=== PATIENT | female | born 1975 | race African-American/Black ===

== ENCOUNTER → 2022-05-09 11:14 | Outpatient (BNVA) | payer OTHER, SELFPAY | PROVIDERS: PCP Internal Medicine Medical Oncology; Visit Provider Nurse Practitioner Family | DX: Z13.89 Encounter for screening for other disorder (principal) ==

== ENCOUNTER 2022-10-23 12:01 | Day surgery (SDC) | payer OTHER, SELFPAY ==
[2022-10-19 13:56] VITALS: BMI 22.8
[2022-10-23 12:29] VITALS: BMI 24.2
[2022-10-23 12:42] VITALS: BP 125/75; PULSE 67; RESP 16; TEMP 36.8; O2SAT 97
--- NOTE | 2022-10-23 12:44 | HO.ANESPROP2 ---
[facility] Past Medical History Medical History (Updated 10/23/22 @ 12:28 by Rani Cote RN) Left breast lump Microcytic anemia Miscarriage Family History Family History Father HTN (hypertension) Mother No problems noted. Family history of problems with anesthesia: No Surgical History Surgical History (Updated 10/23/22 @ 12:28 by Rani Cote RN) H/O dilation and curettage No pertinent past surgical history History of Problems with Anesthesia: No Social History Social History Household Members: Spouse and Children Patient Tobacco Use Status: Never used Tobacco Use of substances other than those prescribed or required for medical reasons: No Are you DNR?: No Advance Directives: No Advance Directives Information Provided: Yes Recently lost weight without trying: No Nutrition Risks: No Nutritional Risk Current occupational status: employed 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 [employer] Meds Allergies Allergy/AdvReac Type Severity Reaction Status Date / Time No Known Allergies Allergy Verified 05/09/22 11:35 Home Medications Medication Instructions Recorded Confirmed Last Taken Type multivit-iron 18 mg-folic acid 400 1 tab PO DAILY 05/05/22 10/19/22 Unknown History mcg-calcium 450 mg-minerals tablet (One Daily Women's) Exam Exam Date and Time: October 23, 2022 1244 Height,Weight and Vital Signs: Height 5 ft 4 in Weight 64.07 kg Pertinent Lab Results Pertinent Lab Results: Laboratory Tests 10/23/22 12:17 Urine Test NEGATIVE Airway Mallampati Class: I TM Dist: >3cm Neck ROM: Full Assessment and Plan Assessment Anesthesia Assessment: Anesthesia Plan Discussed and Chart Reviewed Final Anesthetic Review Family History of Problems with Anesthesia: No History of Problems with Anesthesia: No NPO: Yes ASA Class: II Final Preanesthetic Review: No Changes in Pt Med Stat, Meds/Allgs Chart Reviewed, Consent Obtained/Reviewed and Anes Risks/Benef Reviewed Patient Risk: Low Procedure Risk: Low Anesthetic Plan Anesthetic Plan: MAC: Disposition: Standard PACU
--- NOTE | 2022-10-23 14:10 | MHC.SHP ---
Pre-Procedural Eval Section A Date of Service: 10/23/22 The patient is an INPATIENT: No Section B Chief Complaint: Screening Relevant Family History (Specify if Yes): No Relevant Social History: None Present Medications: see Short Stay Collaborative assessment Medical History: No relevant PMH History of Previous Operations: Relevant previous surgery/procedure and date(s) (History of D and C) Allergies: Allergies Allergy/AdvReac Type Severity Reaction Status Date / Time No Known Allergies Allergy Verified 05/09/22 11:35 Review of Systems Sugical H&P ROS: Negative: Constitution, Cardiovascular, Respiratory and Gastrointestinal Exam Surgical H&P Exam: Normal: Heart, Normal: Lungs, Normal: Extremities and Normal: Abdomen Plan Diagnosis/Plan: Unchanged I have reviewed the history and physical and performed a pertinent physical examination on my patient. No changes have occurred unless specified. Time Spent With Patient Time: Total time managing care of this patient today ____ minutes.
--- NOTE | 2022-10-23 14:16 | W.PM.OPN ---
Operative Note Operative Note Date of Service: 10/23/22 Narrative: COLONOSCOPY TILL CECUM WITH BIOPSIES AND SNARE POLYPECTOMY Pre-op diagnosis: Colon cancer screening (1st colonoscopy) Post-op diagnosis:? Colon polyps, hemorrhoids Endoscopist:? Matthew Bravo MD Anesthesia:?MAC Consent: Indications for the procedure and potential complications of bleeding, perforation, reaction to medications and missed diagnosis were discussed with the patient and informed consent was obtained. Instrument: Olympus PCF H 190 L variable stiffness pediatric colonoscope Monitoring: Vital signs and clinical assessment, intermittent blood pressure monitoring, continuous EKG monitoring, Pulse oximetry and Carbon Dioxide monitoring were done throughout the procedure. Please see anesthesia flowsheet. Colon withdrawl time was 19 minutes. Procedure: The patient was placed in the left lateral decubitis position and pre-procedure medications were administered. After a digital rectal examination of the ano-rectum, the video colonoscope was inserted into the rectum and advanced through the colon to the cecum. The colonoscope was slowly withdrawn in a retrograde panoramic fashion and the colon mucosa was carefully examined including a retroflexed view of the rectum. Findings and interventions are described below. Procedure Difficulty: Colon was long and tortuous and there was spasm and recurrent loop formation. LLQ pressure was applied to intubate the transverse colon Findings: Terminal Ileum: Not evaluated Cecum: Normal Ascending Colon: A 7-8 mm sessile polyp in the mid ascending colon - removed with a cold snare Transverse Colon: Two 4-8 mm diminutive appearing polyps - removed with a cold biopsy Descending Colon: Normal Sigmoid Colon: Normal Rectum: Normal Ano-rectum: Small internal hemorrhoids Colon preparation: Excellent Impression and Post Procedure Diagnosis: Colonoscopy Findings: Three small polyps removed Small hemorrhoids on retroflexed exam. Plan: I will send a letter with pathology results Repeat Colonoscopy interval based on path results - in 3-5 years if polyps are adenomatous and 10 years if polyps are hyperplastic. Above findings were reviewed with the patient and colon polyps and diverticulosis handouts were given in the discharge area
[2022-10-23 14:53] VITALS: BP 99/57; PULSE 73; RESP 16; TEMP 36.2; O2SAT 98
[2022-10-23 15:08] VITALS: BP 106/62; PULSE 72; RESP 14; O2SAT 100
[2022-10-23 15:20] VITALS: BP 117/76; PULSE 75; RESP 16; TEMP 36.2; O2SAT 100
== END 2022-10-23 15:30 | disposition home or self-care (01) ==
PROVIDERS: PCP Internal Medicine Medical Oncology; Visit Provider Internal Medicine Gastroenterology
PROC: 0DJD8ZZ Inspection of Lower Intestinal Tract, Via Natural or Artificial Opening Endoscopic (ICD-10-PCS; CPT 45378; principal; 2022-10-23 13:40)
DX: Z12.11 Encounter for screening for malignant neoplasm of colon (principal); K63.5 Polyp of colon; K64.8 Other hemorrhoids; D50.9 Iron deficiency anemia, unspecified; Z79.899 Other long term (current) drug therapy
CPT/HCPCS: 45385; 45380; 81025; 88305

== ENCOUNTER → 2022-10-23 12:01 | Outpatient (BNV) | payer OTHER, SELFPAY | PROVIDERS: PCP Internal Medicine Medical Oncology; Visit Provider Internal Medicine Gastroenterology | DX: Z12.11 Encounter for screening for malignant neoplasm of colon (principal); D12.2 Benign neoplasm of ascending colon; D12.3 Benign neoplasm of transverse colon; K64.8 Other hemorrhoids | CPT/HCPCS: 45380; 45385 ==

== ENCOUNTER 2022-11-07 14:11 | Outpatient (AMB) | payer OTHER, SELFPAY ==
[2022-11-07 14:22] VITALS: BP 133/71; PULSE 64; BMI 26.0
--- NOTE | 2022-11-07 14:22 | A.OFFVIS_ITS ---
Intake Vital Signs 11/07/22 14:22 Height 5 ft 4 in Weight 151 lb 3.794 oz BMI 26.0 BP 133/71 Blood Pressure Location Lt brachial Position Sitting Pulse 64 Intake Visit Reasons: results Intake Note: Brittanie presents in office as a est.patient for a f/u for results. 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 Denies any issues with anesthesia in the past.? Denies any history of sleep apnea.? No history infectious diseases in the past or present.? Not on any anticoagulation therapy.? No family or personal history of colon cancer or polyps.? Patient denies melena, hematochezia, unintentional weight loss or ribbon like stools.? Discussed at length the pre-procedure,? prep, diet & medications as well as what to expect prior, during and after the procedure.?? Stressed the importance of good bowel prep. ?Recommended the use of Vaseline or Calmoseptine OTC & baby wipes with bowel movements to promote comfort.? ?Patient verbalizes understanding and agrees to plan of care.? She was given the opportunity to ask questions and all questions answered.? We will see her after the procedure.? Plan Medications New bisacodyl (Dulcolax (bisacodyl)) take 2 tabs at noon the day before your colonoscopy 10 mg (2 x 5 mg) PO ONCE 1 day 2 tabs 0RF Z12.11 polyethylene glycol 3350 (Miralax) As directed by gastroenterology department at [facility] 238 grams PO ONCE 238 grams 0RF Z12.11 COLONOSCOPY SCREENING Findings: Terminal Ileum: Not evaluated Cecum:? Normal Ascending Colon:? A 7-8 mm sessile polyp in the mid ascending colon - removed with a cold snare Transverse Colon:? Two 4-8 mm diminutive appearing polyps - removed with a cold biopsy Descending Colon:? Normal Sigmoid Colon:? Normal Rectum:? Normal Ano-rectum:? Small internal hemorrhoids Colon preparation: Excellent ? Impression and Post Procedure Diagnosis: Colonoscopy Findings: Three small polyps removed Small hemorrhoids on retroflexed exam. Plan: Repeat Colonoscopy interval based on path results - in 3-5 years if polyps are adenomatous and 10 years if polyps are hyperplastic. PATHOLOGY RESULTS Diagnosis A.? Colon, ascending, polyp:? Colonic mucosa with lymphoid aggregates and no specific change; negative for adenomatous dysplasia.? B.? Colon, transverse, 2 polyps:? Colonic mucosa with prominent lymphoid aggregates and no specific change; negative for adenomatous dysplasia. TODAY'S VISIT: Patient is here today for follow-up and to discuss colonoscopy results. Patient denies any ill effects from the prep, anesthesia or procedure itself. Patient d enies any GI concerning symptoms. Reports to be feeling well. Three benign polyps found. Patient will need to repeat colonoscopy in 10 years, sooner if clinically necessary. PFSH Medical History Left breast lump Microcytic anemia Miscarriage Surgical History H/O dilation and curettage No pertinent past surgical history Family History Father HTN (hypertension) Mother No problems noted. 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 [employer] Review of Systems Const Denies weight gain and Denies weight loss ENT Reports no additional complaints, Denies dysphagia and Denies odynophagia Card Reports no additional complaints Resp Reports no additional complaints GI Denies abdominal pain, Denies belching, Denies melena, Denies bloating, Denies change in bowel habits, Denies dysphagia, Denies excessive flatus, Denies dyspepsia, Denies heartburn, Denies diarrhea, Denies loose stools, Denies nausea, Denies odynophagia and Denies vomiting Musc Reports no additional complaints Neuro Reports no additional complaints Psych Reports no additional complaints Endo Reports no additional complaints Physical Exam Vital Signs: Last Vital Signs Pulse 64 07/25/23 14:22 BP 133/71 11/07/22 14:22 BMI result Body Mass Index 26.0 Const General: healthy appearing, no acute distress and well developed Nutritional Appearance: well nourished Orientation/consciousness: patient oriented x3 HEENT Head: Yes normal to inspection, Yes normocephalic and Yes atraumatic Face and sinus: Yes normal facial exam Mouth: Normal oral and palatal mucosa present Throat: Yes posterior oropharynx normal, Yes tonsils normal and Yes uvula midline Eyes General: appearance normal, both eyes and all related structures Neck Neck: Yes normal visual inspection, Yes full ROM and Yes trachea midline Thyroid: Thyroid normal Resp Effort & Inspection: normal respiratory effort, able to speak in complete sentences, no tracheal deviation and symmetric chest movement Auscultation: clear to auscultation bilaterally Cardio Rate: regular rate Heart sounds: S1 normal heart sound present and S2 normal heart sound present GI Inspection: Yes normal to inspection and No distended Palpation (GI): Soft to palpation, not firm, nontender and No hepatosplenomegaly present Auscultation: normal bowel sounds General: Yes no CVA tenderness Back/Spine/Pelvis Back: no CVA tenderness Skin General skin exam: elasticity normal, turgor normal and dry skin Neuro General: patient oriented x3 Psych Appearance: grossly normal Mental Status: mental status grossly normal Speech and movement: Normal speech and movement present Assessment & Plan Assessment & Plan (1) Status post colonoscopy: Code(s): Z98.890 - Other specified postprocedural states Plan: Three benign polyps. No issues with anesthesia, prepped or procedure itself. Patient had excellent prep. Colonoscopy recommendation in 10 years, sooner if clinically necessary. Patient will follow-up with our office on as needed ba sis. Asking for script for something to help her empty her bowels completely. Patient states that she does not have any trouble moving her bowels. Patient was given the opportunity to ask questions and all questions answered. Thank you for allowing me to participate in her care Medications: New polyethylene glycol 3350 (Miralax) 17 grams PO DAILY 510 grams 2RF Coding Level of Care Code Est Pt Level 3 (28514) Diagnoses Status post colonoscopy Z98.890 Time Spent (min) 30 Comment 20 minutes spent with patient and additional 10 minutes spent reviewing her records
== END 2022-11-07 14:49 | disposition home or self-care (01) ==
PROVIDERS: PCP Internal Medicine Medical Oncology; Visit Provider Nurse Practitioner Family
DX: Z98.890 Other specified postprocedural states (principal)
CPT/HCPCS: 99213

== ENCOUNTER → 2022-11-07 14:11 | Outpatient (BNVA) | payer OTHER, SELFPAY | PROVIDERS: PCP Internal Medicine Medical Oncology; Visit Provider Nurse Practitioner Family ==

== ENCOUNTER 2024-10-27 11:01 | Outpatient (REF) | payer SELFPAY ==
--- OUTSIDE RECORDS SUMMARY | 2024-06-18 10:05 | XMS_ITS ---
Author Organization Shaka Chairez III, MD Address [address] [place] [address] [place] [address] Care Team Providers Care Terra Cotta Mold Maker Name Role Phone Shaka Chairez Primary Care Provider REASON FOR VISIT Out of work Note request Social History Sex Assigned At : Social History Observation Description Sex Assigned At Female Encounters Encounter Location Date Provider Diagnosis Shaka Chairez III, MD [address] [place] [address] [place] [address] 06/18/2024 Shaka Chairez Plan Of Treatment Next Appt Details Provider Name:Shaka Chairez, 12/31/2024 11:00:00 AM, [address] [place] [address] [place], [address], Progress Notes * Brittanie ENGLISH NDOB: 6 (49 yo F)Acc No.[id number]:06/18/2024 Patient: Brittanie YUEN :1975 A ge:49 Y S ex:Female Address:[place], [address] * true * Date: Generated for Printi ng/Faxing/eTransmitting on: 10/27/2024 12:05 PM EDT
[2024-10-27 13:18] LABS: Appearance Urine Clear; Glucose Urine UA Negative (Negative); PH 5.5 (5.0-9.0); Specific Gravity - Urine 1.020 (1.005-1.025)
== END 2024-10-27 11:02 | disposition home or self-care (01) ==
LOC: HO.10HDLNP 11:01
PROVIDERS: Visit Provider Internal Medicine Medical Oncology
DX: R39.9 Unspecified symptoms and signs involving the genitourinary system (principal)
CPT/HCPCS: 81003; 87086

== ENCOUNTER → 2025-04-08 11:36 | Outpatient (REF) | payer BC, SELFPAY ==
--- OUTSIDE RECORDS SUMMARY | 2024-06-18 09:05 | XMS_ITS ---
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 Shaka Chairez III Primary Care Provider [phone] REASON FOR VISIT Out of work Note request Social History Sex Assigned At : Social History Observation Description Sex Assigned At Female Encounters Encounter Location Date Provider Diagnosis Shaka Chairez III, MD [address] [place] [address] [place] [address] 06/18/2024 Shaka Chairez Plan Of Treatment Next Appt Details Provider Name:Shaka Chairez , 05/18/2025 10:00:00 AM, [address] [place] [address] [place], [address], Provider Name:Shaka Chairez , 01/01/2026 02:00:00 PM, [address] [place] [address] [place], [address], Progress Notes * REDDMUNACharanjitBrittanie NDOB: 6 (49 yo F)Acc No.[id number]:06/18/2024 Patient: Brittanie YUEN Jayson :1975 A ge:49 Y S ex:Female Address:[address], [place] [facility] [place], [address] * true * Date: Generated for Sandy rdz/Lily/Duyen on: 06/09/2024 11:40 AM EST
--- OUTSIDE RECORDS SUMMARY | 2024-07-08 11:00 | XMS_ITS ---
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 Shaka Chairez III Primary Care Provider Allergies Allergen (clinical drug ingredient) Drug/Non Drug Allergy documented on EMR Reaction Allergy Type Onset Date Status No Known Drug Allergy Unknown Drug Allergy Active REASON FOR VISIT Annual Exam Medications Medication SIG (Take, Route, Fr equency, Duration) Notes Start Date End Date Status Womens One Daily 18 one a day Orally Active Social History Tobacco Use: Social History Observation Description Date Details (start date - stop date) Never Smoker NA - NA Sex Assigned At : Social History Observation Description Sex Assigned At Female Tobacco Use/Smoking Question Answer Notes Patient is a nonsmoker Additional Findings: Tobacco Non-User Aggressive non-smoker Encounters Encounter Location Date Provider Diagnosis Shaka Chairez III, MD [address] [place] [address] [place] [address] 07/08/2024 Shaka Chairez Leukopenia, unspecified type D72.819 Assessments Encounter Date Diagnosis (ICD Code) Assessment Notes Treatment Notes Treatment Clinical Notes 07/08/2024 Leukopenia, unspecified type (ICD-10 - D72.819) She has had no infections until now. Comprehensive blood work has been ordered prior to her next visit. Plan Of Treatment Medication Medication Name Sig Start Date Stop Date Notes Womens One Daily 18 one a day Orally Next Appt Details Provider Name:Shaka Chairez , 05/18/2025 10:00:00 AM, [address] [facility] [place], [place], [address], Provider Name:Shaka Chairez , 01/01/2026 02:00:00 PM, [address] [facility] [place], [place], [address], Progress Notes * Brittanie GAVIRIA NDOB: [birth year] (50 yo F)Acc No.[id number]:07/08/2024 Progress Notes Patient: Brittanie YUEN N Provider: Elvis Chairez MD :1975 A ge:49 Y S ex:Female Date:07/08/2024 Address:[address] [place] [id number] Subjective: * Chief Complaints: * 1 . Annual Exam. * HPI: C OVID-19 Screening: Questions H ave you had any new onset fever, chills, cough, congestion, sore throat, shortness of breath, muscle aches? N o * ROS: G eneral/Constitutional: pain o nly normal aches and pains. C hills d enies.?Fatigue a dmits. F ever d enies. E NT: Decreased hearing d enies. R espiratory: Cough d enies. C ardiovascular: Chest pain with exertion d enies. D yspnea on exertion?denies. S hortness of breath d enies. G astrointestinal: Constipation d enies. D ecreased appetite d enies.?Diarrhea d enies. H eartburn d enies. N ausea d enies. R ectal bleeding?denies. V omiting d enies. H ematology: bruising d enies. p etechiae d enies. S wollen glands n one have been noted. G enitourinary: Frequent urination d enies. M usculoskeletal: Muscle aches d enies. P ainful joints d enies. S ciatica d enies. W eakness d enies. S kin: Itching d enies. R kimo d enies. S kin lesion(s)?denies. N eurologic: Difficulty speaking d enies. D izziness d enies.?Headache d enies. L ow back pain d enies. P sychiatric: Depressed mood d enies. * Medical History: M icrocytic anemia. 2013, Slightly overweight. * Surgical History: D enies Past Surgical History. * Hospitalization/Major Diagno stic Procedure: D enies Past Hospitalization. * Family History: F ather: alive 66 yrs, hypertension. M other: alive 70 yrs, ulcers. 2 brother(s) , 5 sister(s) - healthy. 2 daughter(s) - healthy. . Her siblings are all alive and well without anemias. Her children are healthy. She is not aware of any family history of mental illness or addiction or substance abuse. * Social History: T obacco Use: T obacco Use/Smoking P atspencer is a n onsmoker A dditional Findings: Tobacco Non-User A ggressive non-smoker S he has been to [place] for several years. She was born in [facility]. She has 2 healthy children, both daughters. 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 She has no exposures. She has never had a transfusion. She has not a Congregational. * Medications: T aking Womens One Daily 18 mg one a day Orally , Medication List reviewed and reconciled with the patient * Allergies: N o Known Drug Allergy. Objective: * Vitals: * Examination: G eneral Examination: GENERAL APPEARANCE: p leasant, well nourished, well developed, in no acute distress, calm and relaxed. HEAD: a traumatic, normocephalic. EYES: e travis, perrla, anicteric, conjugate. EARS: n ormal. NOSE: s eptum intact. ORAL CAVITY: n ormal, unremarkable. NECK/THYROID: n o jugular venous distention, no carotid bruit, thyroid normal. LYMPH NODES: n o enlarged lymph nodes,spleen normal. SKIN: n o suspicious lesions, anicteric. HEART: n o clicks, gallops, murmurs, or rubs, regular rhythm, S1, S2 normal, no s3, or vascular bruits. LUNGS: c lear to auscultation . BREASTS: no masses palpable bilaterally. ABDOMEN: b owel sounds normal, no ascites, no organomegaly, no mass. RECTAL EXAM: n ot examined. MUSCULOSKELETAL: e xtremities unremarkable, no clubbing, cyanosis or edema. PERIPHERAL PULSES: n ormal. NEUROLOGIC: a lert and oriented, cranial nerves 2-12 grossly intact, deep tendon reflexes 2+ symmetrical, motor strength normal upper and lower extremities, sensory exam intact. PSYCH: a lert, oriented. Assessment: * Assessment: 1. L eukopenia, unspecified type - D72.819 N otes :She has had no infections until now. Comprehensive blood work has been ordered prior to her next visit. Plan: * Treatment: * Images: * The named appointment provid er may or may not be the originator of this progress note, and it is not deemed complete until electronically signed by the appointment provider. Sign off status: Pending * Provider: Elvis Chairez MD Date: 0 07/08/2024 Generated for Sandy rdz/Lily/Justusransmitting on: 06/09/2024 11:40 AM EST History and Physical Notes * HPI (History of Present Illness) Category Sub-Category Detail Notes COVID-19 Screening Questions Have you had any new onset fever, chills, cough, congestion, sore throat, shortness of breath, muscle aches?: No Examination Category Sub-Category Detail Notes General Examination GENERAL APPEARANCE: pleasant , well nourished, well developed, in no acute distress, calm and relaxed HEAD: atraumatic, normocep halic EYES: eomi, perrla, anicte susanna, conjugate EARS: normal NOSE: septum intact NECK/THYROID: no jugular venous di stention, no carotid bruit, thyroid normal HEART: no clicks, gallops, murmurs, or rubs, regular rhythm, S1, S2 normal, no s3, or vascular bruits LUNGS: clear to auscultatio n ABDOMEN: bowel sounds normal, no ascites, no organomegaly, no mass NEUROLOGIC: alert and oriented, cranial nerves 2-12 grossly intact, deep tendon reflexes 2+ symmetrical, motor strength normal upper and lower extremities, sensory exam intact SKIN: no suspicious lesion s, anicteric PERIPHERAL PULSES: normal BREASTS: no masses palpable b ilaterally MUSCULOSKELETAL: extremities unremark able, no clubbing, cyanosis or edema LYMPH NODES: no enlarged lymph no em,spleen normal RECTAL EXAM: not examined PSYCH: alert, oriented ORAL CAVITY: normal, unremarkable
--- OUTSIDE RECORDS SUMMARY | 2024-10-27 05:00 | XMS_ITS ---
Author Organization Shaka Chairez III, MD Address [address] [place] [address] Care Team Providers Care Classroom Coordinator Name Role Phone Dr. Shaka Chairez III Primary Care Provider Allergies Allergen (clinical drug ingredient) Drug/Non Drug Allergy documented on EMR Reaction Allergy Type Onset Date Status No Known Drug Allergy Unknown Drug Allergy Active Results Component Value Reference Range Notes Urine Culture Reviewed date:11/07/2024 01:03:44 PM Interpretation: Performing Lab:[facility], [address] [place] [id number] Notes/Report: Urine Culture Report Result Urine Culture 10,000 to 50,000 cfu/ml Urine Culture Mixed bacterial paige a characteristic of Urine Culture urogenital contamination. REASON FOR VISIT recheck left ankle sprain, Obesity Medications Medication SIG (Take, Route, Fr equency, [...] nonsmoker Additional Findings: Tobacco Non-User Aggressive non-smoker Problems Problem Type SNOMED Code ICD Code Onset Dates Problem Status W/U Status Risk Notes Problem [id number] Sprain of unspecified ligament of left ankle, initial encounter (S93.402A) Active confirmed She is recovering well. No fracture was noted on x-rays. He will refrain for several weeks from his vigorous physical activity and then resume normal life. Problem [id number] Other obesity due to excess calories (E66.09) Active confirmed She has gained weight and her body mass index is now 30. We discussed diet and nutrition at length. We made a strategy to lose weight at a rate of 1 pound per week. Vital Signs Temperature 97.3 degrees Fahrenheit 10/28/19 25 Blood pressure systolic 138 mm Hg 10/28/19 25 Blood pressure diastolic 84 mm Hg 025 Heart Rate 81 /min 10/27/2024 Height 64 in 10/27/2024 Weight 176 lbs 10/27/2024 BMI 30.21 kg/m2 10/27/2024 Encounters Encounter Location Date Provider Diagnosis Shaka Chairez III, MD [address] [place] [address] [place] [address] 10/27/2024 Shaka Chairez UTI symptoms R39.9 ; Sprain of unspecified ligament of left ankle, initial encounter S93.402A ; Leukopenia, unspecified type D72.819 ; Microcytic anemia D50.9 and Other obesity due to excess calories E66.09 Assessments Encounter Date Diagnosis (ICD Code) Assessment Notes Treatment Notes Treatment Clinical Notes 10/27/2024 UTI symptoms (ICD-10 - R39.9) A urine culture was ordered and is currently pending. 10/27/2024 Sprain of unspecified ligament of left ankle, initial encounter (ICD-10 - S93.402A) She is recovering well. No fracture was noted on x-rays. He will refrain for several weeks from his vigorous physical activity and then resume normal life. 10/27/2024 Leukopenia, unspecified type (ICD-10 - D72.819) She has had no infections until now. Comprehensive blood work has been ordered prior to her next visit. 10/27/2024 Microcytic anemia (ICD-10 - D50.9) She is going to have comprehensive blood work in the next week. She will return to the office in 1 year after more cooperative blood work. 10/27/2024 Other obesity due to excess calories (ICD-10 - E66.09) She has gained weight and her body mass index is now 30. We discussed diet and nutrition at length. We made a strategy to lose weight at a rate of 1 pound per week. Plan Of Treatment Medication Medication Name Sig Start Date Stop Date Notes Womens One Daily 18 one a day Orally Pending Test Test Name Order Date URINALYSIS (UA) 10/27/2024 Next Appt Details Follow Up: As Scheduled, Analilia son: Annual Exam Provider Name:Shaka Chairez , 05/18/2025 10:00:00 AM, [address] [place] [address] [address], [place], [address], Provider Name:Shaka Chairez , 01/01/2026 02:00:00 PM, [address] [place] [address] [address], [place], [phone], Progress Notes * Brittanie GAVIRIA NDOB: [birth year] (49 yo F)Acc No.[id number]:10/27/2024 Progress Notes Patient: Brittanie YUEN Provider: Elvis Chairez MD :1975 A ge:49 Y S ex:Female Date:10/27/2024 Address:[address] [place], [place] [id number] Subjective: * Chief Complaints: * R echeck left ankle sprainObesity * HPI: C OVID-19 Screening: S he sprained her ankle 2 weeks ago and went to the [facility] emergency room.? X -rays showed no fracture. She was given an ankle brace. The pain and swelling have completely resolved and she is walking without difficulty at this time. Since her last visit she has gained 20 pounds. She says her urine is not quite right and she is concerned she may be getting a urinary tract infection. Na stevens have ordered a urine culture and urinalysis. She can call me in 48 hours if I don't call her first. She continues to have periods although they're becoming irregular at the age of 49. Aside from the weight cane she seems healthy and well. Questions H ave you had any new [...] Muscle aches d enies. P ainful joints H er left ankle is almost painless at this time.. S ciatica d enies. W eakness d enies. ? S kin: Itching d enies. R kimo d enies. S kin lesion(s)?denies. N eurologic: Difficulty speaking d enies. D izziness d enies.?Headache d enies. L ow back pain d enies. P sychiatric: Depressed mood d enies. * Medical History: * Surgical History: D enies Past Surgical History * Hospitalization/Major Diagno stic Procedure: D enies Past Hospitalization * Family History: F ather: alive 66 [...] T obacco Use: T obacco Use/Smoking P atient is a n onsmoker A dditional Findings: Tobacco Non-User A ggressive non-smoker S he has been to [place] for several years. She was born in [facility]. She has 2 healthy children, both daughters. 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 She has no exposures. She has never had a transfusion. She has not a Alevism. * Medications: T akingWomens One Daily 18 mg one a day Orally Medication List reviewed and reconciled with the patientAna Childerss One Daily 18 mg one a day Orally Medication List reviewed and reconciled with the patient * Allergies: N o Known Drug Allergyno[Allergies Verified] Objective: * Vitals: H t: 64, Wt: 176, BMI:30.21, BP: 138/84, HR: 81, Temp: 97.3, Wt-k.83. * Examination: G eneral Examination: GENERAL APPEARANCE: p leasant, well nourished, well developed, in no acute distress, calm and relaxed, obese, woman. HEAD: a traumatic, normocephalic. EYES: e travis, [...] LUNGS: c lear to auscultation . BREASTS: N ot examined. ABDOMEN: b owel sounds normal, no ascites, no organomegaly, no mass, centripital obesity. RECTAL EXAM: n ot examined. MUSCULOSKELETAL: e xtremities unremarkable, no clubbing, cyanosis or edema, Unremarkable appearance of the left ankle. PERIPHERAL PULSES: n ormal. NEUROLOGIC: a lert and oriented, cranial nerves 2-12 grossly intact, deep tendon reflexes 2+ symmetrical, motor strength normal upper and lower extremities, sensory exam intact. PSYCH: a lert, oriented. Assessment: * Assessment: 1. S prain of unspecified ligament of left ankle, initial encounter - S93.402A (Primary) ? N otes :She is recovering well. No fracture was noted on x-rays. He will refrain for several weeks from his vigorous physical activity and then resume normal life. 2 . U TI symptoms - R39.9 N otes :A urine culture was ordered and is currently pending. 3 . L eukopenia, unspecified type - D72.819 N otes :She has had no infections until now. Comprehensive blood work has been ordered prior to her next visit. 4 . M icrocytic anemia - D50.9 N otes :She is going to have comprehensive blood work in the next week. She will return to the office in 1 year after more cooperative blood work. 5 . O ther obesity due to excess calories - E66.09 N otes :She has gained weight and her body mass index is now 30. We discussed diet and nutrition at length. We made a strategy to lose weight at a rate of 1 pound per week. Plan: * Treatment: 2. O thers Continue Womens One Daily mg, 18, one a day, Orally. * Procedure Codes: * Preventive Medicine: Counseling: C are goal follow-up plan: Counseling for abnormal BMI given Y es Above Normal BMI Follow-up D ietary management education, guidance, and counseling, Dietary needs education * Follow Up: A s Scheduled (Reason: Annual Exam) * Images: * Sign off status: Completed true * Provider: Elvis Chairez MD Date: 0 10/27/2024 Generated for Sandy rdz/Lily/Aliciaitting on: 1 06/09/2024 11:41 AM EST History and Physical Notes * HPI (History of Present Illness) Category Sub-Category Detail Notes COVID-19 Screening Questions Have you had any new onset fever, chills, cough, congestion, sore throat, shortness of breath, muscle aches?: No Examination Category Sub-Category Detail Notes General Examination GENERAL APPEARANCE: pleasant , well nourished, well developed, in no acute distress, calm and relaxed, obese, woman HEAD: atraumatic, normocep halic EYES: eomi, perrla, anicte susanna, conjugate EARS: normal NOSE: septum intact NECK/THYROID: no jugular venous di stention, no carotid bruit, thyroid normal HEART: no clicks, gallops, murmurs, or rubs, regular rhythm, S1, S2 normal, no s3, or vascular bruits LUNGS: clear to auscultatio n ABDOMEN: bowel sounds normal, no ascites, no organomegaly, no mass, centripital obesity NEUROLOGIC: alert and oriented, cranial nerves 2-12 grossly intact, deep tendon reflexes 2+ symmetrical, motor strength normal upper and lower extremities, sensory exam intact SKIN: no suspicious lesion s, anicteric PERIPHERAL PULSES: normal BREASTS: Not examined MUSCULOSKELETAL: extremities unremark able, no clubbing, cyanosis or edema, Unremarkable appearance of the left ankle LYMPH NODES: no enlarged lymph no em,spleen normal RECTAL EXAM: not examined PSYCH: alert, oriented ORAL CAVITY: normal, unremarkable
--- OUTSIDE RECORDS SUMMARY | 2024-11-14 12:15 | XMS_ITS ---
Author Organization Shaka Chairez III, MD Address [address] [place] [address] [place] [address] Care Team Providers Care Registered Nurses Name Role Phone Dr. Shaka Chairez III Primary Care Provider [phone] REASON FOR VISIT Annual Exam Social History Sex Assigned At : Social History Observation Description Sex Assigned At Female Encounters Encounter Location Date Provider Diagnosis Shaka Chairez III, MD [address] [place] [address] [place] [phone] 11/14/2024 Shaka Chairez Plan Of Treatment Next Appt Details Provider Name:Shaka Chairez , 05/18/2025 10:00:00 AM, [address] [place] [address] [place], [phone], Provider Name:Shaka Chairez , 01/01/2026 02:00:00 PM, [address] [place] [address] [place], [address], Progress Notes * Brittanie GAVIRIA NDOB: [birth year] (50 yo F)Acc No.[id number]:11/14/2024 Progress Notes Patient: Brittanie YUEN Provider: Elvis Chairez MD :1975 A ge:49 Y S ex:Female Date:11/14/2024 Address:[address] [place], [place] [id number] Subjective: * Chief Complaints: * 1 . Annual Exam. * Medical History: Objective: * Vitals: Assessment: Plan: * Treatment: * Images: * The named appointment provid er may or may not be the originator of this progress note, and it is not deemed complete until electronically signed by the appointment provider. Sign off status: Pending * Provider: Elvis Chairez MD Date: 0 11/14/2024 Generated for Sandy rdz/Lily/Aliciaitting on: 1 06/09/2024 11:40 AM EST
--- OUTSIDE RECORDS SUMMARY | 2024-12-31 11:00 | XMS_ITS ---
Author Organization Shaka Chairez III, MD Address [address] [place] [address] Care Team Providers Care Elementary School Teacher'S Aide Name Role Phone Dr. Shaka Chairez III Primary Care Provider Allergies Allergen (clinical drug ingredient) Drug/Non Drug Allergy documented on EMR Reaction Allergy Type Onset Date Status No Known Drug Allergy Unknown Drug Allergy Active No Known Food Allergy Unknown Drug Allergy Active Reason For Referral Reason Consult and Treat Left Foot Pain Diagnosis 1 Left foot pain (M79. 672) Referral Organization Shaka Chairez III, MD Referring Provider First Name Shaka Referring Provider Last Name Contreras Referring Provider Speciality Internal M edicine Referred Provider [facility] Abigail Hollingsworth Referred Provider Specialty Podiatry General Notes DJennifer 01/02/2025 01:42:55 PM > referral and progress note faxed., Jennifer Garvin 02/24/2025 10:31:56 AM >D, Jennifer 02/24/2025 10:28:46 AM > [facility] is requiring all patients to call and schedule their appointments no pcp referral needed. Patient was contacted and left a message regarding referral. Referral Priority Routine REASON FOR VISIT Annual Exam Medications Medication SIG (Take, Route, Fr equency, Duration) Notes Start Date End Date Status Womens One Daily 18 one a day Orally Active Social History Tobacco Use: Social History Observation Description Date Details (start date - stop date) Never Smoker NA - NA Sex Assigned At : Social History Observation Description Sex Assigned At Female Tobacco Control (Standard) Question Answer Notes Tobacco use: Nonsmoker Additional Findings: Tobacco non-user Aggressive nonsmoker AUDIT-C (Standard) Question Answer Notes Did you have a drink containing alcohol in the p ast year? No Points 0 Interpretation Negative Problems Problem Type SNOMED Code ICD Code Onset Dates Problem Status W/U Status Risk Notes Problem [id number] Moderate obesity (E66.9) Active confirmed Since April 2023 she has gained 43 pounds. We discussed diet and nutrition today. We made a plan to lose weight at a rate of one half of a pound per week through a diet restricted in fat calories and sodium combined with regular physical activities. Vital Signs Temperature 97.8 degrees Fahrenheit 01/01/20 25 Blood pressure systolic 139 mm Hg 01/01/20 25 Blood pressure diastolic 81 mm Hg 025 Heart Rate 67 /min 12/31/2024 Height 64 in 12/31/2024 Weight 184 lbs 12/31/2024 BMI 31.58 kg/m2 12/31/2024 Encounters Encounter Location Date Provider Diagnosis Shaka Chairez III, MD [address] [place] [address] [place] [address] 12/31/2024 Shaka Chairez Microcytic anemia D50.9 ; Moderate obesity E66.9 ; Leukopenia, unspecified type D72.819 and Sprain of unspecified ligament of left ankle, initial encounter S93.402A Assessments Encounter Date Diagnosis (ICD Code) Assessment Notes Treatment Notes Treatment Clinical Notes 12/31/2024 Microcytic anemia (ICD-10 - D50.9) Comprehensive blood work with a CBC has been ordered to reassess this problem. 12/31/2024 Moderate obesity (ICD-10 - E66.9) Since April 2023 she has gained 43 pounds. We discussed diet and nutrition today. We made a plan to lose weight at a rate of one half of a pound per week through a diet restricted in fat calories and sodium combined with regular physical activities. 12/31/2024 Leukopenia, unspecified type (ICD-10 - D72.819) She has had no infections until now. Comprehensive blood work has been ordered prior to her next visit. 12/31/2024 Sprain of unspecified ligament of left ankle, initial encounter (ICD-10 - S93.402A) She is recovering well. No fracture was noted on x-rays. He will refrain for several weeks from his vigorous physical activity and then resume normal life. Plan Of Treatment Medication Medication Name Sig Start Date Stop Date Notes Womens One Daily 18 one a day Orally Pending Test Test Name Order Date PROFILE, FASTING (COMPREHENSIVE METABOLI C) 12/31/2024 CBC w DIFF 12/31/2024 Lipid Panel 12/31/2024 Referrals Referral Date Details 12/31/2024 12/31/2024, Consult and Treat Left Foot Pain, [facility] Next Appt Details Follow Up: 1 Year, Reason: A nnual Exam Provider Name:Shaka Chairez , 05/18/2025 10:00:00 AM, [address] [place] [address] [address], [place], [id number], Provider Name:Shaka Chairez , 01/01/2026 02:00:00 PM, [address] [place] [address] [address], [place], [id number], Progress Notes * Brittanie GAVIRIA NDOB: [birth year] (49 yo F)Acc No.[id number]:12/31/2024 Progress Notes Patient: Brittanie YUEN Provider: Elvis Chairez MD :1975 A ge:49 Y S ex:Female Date:12/31/2024 Address:[address] [place], [place] [id number] Subjective: * Chief Complaints: * A nnual Exam * HPI: D epression Screening: She returns to the office at the age of 49 for annual visit. Comprehensive blood work is not available but was ordered. She has been healthy and well since her last visit but she has gained significant weight. We discussed diet and nutrition at length today. She has had no bleeding chest pain or shortness of breath.She complains of some pain in her left foot. She states that several months ago she injured her left foot and had an x-ray that showed no fracture. She has missed work several times because of pain in her foot. She must stand at work. She was given the name of 2 podiatrists that we use frequently and told to call them for an appointment. She was instructed to bring the Kaylee of shoe she wears most commonly with her. PHQ-9 L ittle interest or pleasure in doing things?Not at all F eeling down, depressed, or hopeless N ot at all T rouble falling or staying asleep, or sleeping too much N ot at all F eeling tired or having little energy N ot at all P oor appetite or overeating N ot at all F eeling bad about yourself or that you are a failure, or have let yourself or your family down N ot at all T rouble concentrating on things, such as reading the newspaper or watching television N ot at all M oving or speaking so slowly that other people could have noticed; or the opposite, being so fidgety or restless that you have been moving around a lot more than usual N ot at all T houghts that you would be better off or of hurting yourself in some way N ot at all T otal Score 0 C OVID-19 Screening: Questions H ave you had any new onset fever, chills, cough, congestion, sore throat, shortness of breath, muscle aches? N o S JAISON Questions: SDOH Questions I n the past year have you or any family members you live with been unable to get any of the following when it was really needed? Check all that apply: D ecline to answer * ROS: G eneral/Constitutional: pain o nly normal aches and pains. C hills d enies.?Fatigue a dmits. F ever d enies. E NT: Decreased hearing d enies. R espiratory: Cough d enies. C ardiovascular: Chest pain with exertion d enies. D yspnea on exertion?denies. S hortness of breath d enies. G astrointestinal: Constipation o ccasional. D ecreased appetite d enies. D iarrhea d enies. H eartburn o ccasional. N ausea d enies. R ectal bleeding d enies. V omiting d enies. H ematology: bruising [...] Social History: T obacco Use: T obacco Control (Standard) T obacco use: N onsmoker A dditional Findings: Tobacco non-user A ggressive nonsmoker D rugs/Alcohol: D rugs H ave you used drugs other than those for medical reasons in the past 12 months? N o D rug/Alcohol: A YONI-C (Standard) D id you have a drink containing alcohol in the past year? N o P oints 0 I nterpretation N egative S he has been to [place] for several years. She was born in [facility]. She has 2 healthy children, both daughters. 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 She has no exposures. She has never had a transfusion. She has not a Oriental orthodox. * Medications: T akingWomens One Daily 18 mg one a day Orally Medication List reviewed and reconciled with the patientTaking Womens One Daily 18 mg one a day Orally Medication List reviewed and reconciled with the patient * Allergies: N o Known Drug AllergyNo Known Food Allergyno[Allergies Verified] Objective: * Vitals: H t: 64, Wt: 184, BMI:31.58, BP: 139/81, HR: 67, Temp: 97.8, Wt-k.46. * P ast Orders: L ab:Urine Culture (Order Date - 10/27/2024) (Collection Date & Time - 10/27/2024 11:05 AM) Value Reference Range Urine Culture urogenital contamination. - L ab:Urinalysis (Order Date - 10/27/2024) (Collection Date & Time - 10/27/2024 11:05 AM) Value Reference Range Color Urine Yellow - Appearance Urine Clear - PH 5.5 5.0-9.0 - Glucose Urine UA Negative Negative - mg/dL Urine Blood Negative Negative - Specific Wheatley - Urine 1.020 1.005-1.025 - Urine Protein Negative Neg-Trace - mg/dL Urine Ketones Negative Negative - mg/dL Nitrite Urine Negative Negative - Leukocyte Esterase Urine Negative Negative - * Examination: G eneral Examination: GENERAL APPEARANCE: p leasant, well nourished, well developed, in no acute distress, calm and relaxed: obese: woman. HEAD: a traumatic, normocephalic. EYES: e [...] sounds normal, no ascites, no organomegaly, no mass: centripital obesity. RECTAL EXAM: n ot examined. MUSCULOSKELETAL: e xtremities unremarkable, no clubbing, cyanosis or edema, Examination of left foot was unremarkable but the pain was reproduced by rotation of the metatarsal joints. PERIPHERAL PULSES: n ormal. NEUROLOGIC: a lert and oriented, cranial nerves 2-12 grossly intact, deep tendon reflexes 2+ symmetrical, motor strength normal upper and lower extremities, sensory exam intact. PSYCH: a lert, oriented. Assessment: * Assessment: 1. M oderate obesity - E66.9 (Primary) N otes :Since April 2023 she has gained 43 pounds. We discussed diet and nutrition today. We made a plan to lose weight at a rate of one half of a pound per week through a diet restricted in fat calories and sodium combined with regular physical activities. 2 . M icrocytic anemia - D50.9 N otes :Comprehensive blood work with a CBC has been ordered to reassess this problem. 3 . L eukopenia, unspecified type - D72.819 N otes :She has had no infections until now. Comprehensive blood work has been ordered prior to her next visit. 4 . S prain of unspecified ligament of left ankle, initial encounter - S93.402A N otes :She is recovering well. No fracture was noted on x-rays. He will refrain for several weeks from his vigorous physical activity and then resume normal life. Plan: * Treatment: 2. O thers Continue Womens One Daily mg, 18, one a day, Orally. Referral To:[facility] Reason:Consult and Treat Left Foot Pain * Procedure Codes: * Preventive Medicine: Counseling: C are goal follow-up plan: Counseling for abnormal BMI given Y es Above Normal BMI Follow-up D ietary management education, guidance, and counseling, Dietary needs education, Exercise promotion: strength training, Exercise promotion: stretching, Feeding regime, Giving encouragement to exercise, Lifestyle education regarding diet, Nutrition / feeding management, Nutrition therapy, Prescribed activity/exercise education, Prescribed diet education, Prescribed dietary intake, Special diet education, Weight monitoring , Intervention, Order not done: Medical or Other reason not done * Follow Up: 1 Year (Reason: Annual Exam) * Images: * Sign off status: Completed true * Provider: Elvis Chairez MD Date: 0 12/31/2024 Generated for Sandy rdz/Lily/Duyen on: 06/09/2024 11:41 AM EST History and Physical Notes * HPI (History of Present Illness) Category Sub-Category Detail Notes Depression Screening PHQ-9 Little inte rest or pleasure in doing things: Not at all Feeling down, depressed, or hopeless: No t at all Trouble falling or staying asleep, or sl eeping too much: Not at all Feeling tired or having little energy: N ot at all Poor appetite or overeating: Not at all Feeling bad about yourself o r that you are a failure, or have let yourself or your family down: Not at all Trouble concentrating on thi ngs, such as reading the newspaper or watching television: Not at all Moving or speaking so slowly that other people could have noticed; or the opposite, being so fidgety or restless that you have been moving around a lot more than usual: Not at all Thoughts that you would be b margarette off or of hurting yourself in some way: Not at all Total Score: 0 COVID-19 Screening Questions Have you had any new onset fever, chills, cough, congestion, sore throat, shortness of breath, muscle aches?: No SDOH Questions SDOH Questions In the past year have you or any family members you live with been unable to get any of the following when it was really needed? Check all that apply:: Decline to answer Examination Category Sub-Category Detail Notes General Examination GENERAL APPEARANCE: pleasant , well nourished, well developed, in no acute distress, calm and relaxed: obese: woman HEAD: atraumatic, normocep halic EYES: eomi, perrla, anicte susanna, conjugate EARS: normal NOSE: septum intact NECK/THYROID: no jugular venous di stention, no carotid bruit, thyroid normal HEART: no clicks, gallops, murmurs, or rubs, regular rhythm, S1, S2 normal, no s3, or vascular bruits LUNGS: clear to auscultatio n ABDOMEN: bowel sounds normal, no ascites, no organomegaly, no mass: centripital obesity NEUROLOGIC: alert and oriented, cranial nerves 2-12 grossly intact, deep tendon reflexes 2+ symmetrical, motor strength normal upper and lower extremities, sensory exam intact SKIN: no suspicious lesion s, anicteric PERIPHERAL PULSES: normal BREASTS: no masses palpable b ilaterally MUSCULOSKELETAL: extremities unremark able, no clubbing, cyanosis or edema, Examination of left foot was unremarkable but the pain was reproduced by rotation of the metatarsal joints LYMPH NODES: no enlarged lymph no em,spleen normal RECTAL EXAM: not examined PSYCH: alert, oriented ORAL CAVITY: normal, unremarkable Consultation Request Notes Referral Date Referring Provider Referred Provider Not es 12/31/2024 [facility] [place] Consult and Treat Left Foot Pain
--- OUTSIDE RECORDS SUMMARY | 2025-04-03 23:59 | XMS_ITS | Continuity of Care Document ---
Author Organization [facility] Address [address], [place] [address]- Care Team Providers Care Car Knocker Name Role Phone Contreras TRIANA, Shaka Warner Primary Care Physician [phone] [id number] Date(s): 03/27/25 - 04/03/25 [facility] [address] [place], [place] [address] Attending Physician: Tonya Green Referring Physician: Not on Staff, Referring MD Encounter Type: Office Visit Allergies, Adverse Reactions, Alerts No Known Allergies Medications Multivitamin Daily, 0 Refills, Maintenance, 04/20/20 9:28:00 AM EST, Partial fill upon patient request if the prescription is for a schedule II opioid drug. Start Date: 04/20/20 Status: Ordered Medication Dispense Status: Completed Total Allowed Fills: 1 Fills Dispensed: 0 Problem List Condition Confirmation Course Effective Dates Status Health St atus Informant Obese class I Confirmed Active Vital Signs Most recent to oldest [Reference Range]: 1 Height 165 cm (03/27/25 10:48 AM) Weight 87.6 kg (03/27/25 10:48 AM) Pulse Rate [55-90 bpm] 65 bpm (03/27/25 10:48 AM) Body Mass Index [18.5-24.99 kg/m2] 32.18 kg/m2 *H* (03/27/25 10:48 AM) Blood Pressure [90-138/55-84 mm Hg] 140/ 83mm Hg *H* (03/27/25 10:48 AM) Blood pressure sites Arm, left (03/27/25 10:48 AM) Weight Obtained Via Standing scale (03/27/25 10:48 AM) Social History Social History Type Response Smoking Status Never (less than 100 in lifetime) entered on: 04/20/20 Sexual Orientation Self described orien tation: ; Straight or heterosexual Sex Sex Representation Female (finding) Patient Care team information Care Team Personnel Name: Shaka Chairez MD Position: [facility] Physician - Oncology Member Role: PCP Address: [address] [place] [address] [address] Shaka Chairez III, [place], [place] [address] Telecom: Care Team Related Persons Name: MATTHEW PELAYO Name: BEATRIZ PELAYO Name: NASIR GONZÁLES Insurance Providers Guarantor name[facility] Plan Information #: 1 Payer: BLUE BENEFIT [employer] PPO Payer Identifier: NA Member Number: [id number] Group Number: [id number] Subscriber Identifier: [id number] Relationship to Subscriber: self Coverage Type: BLUE CROSS/BLUE SHIELD Coverage Verification Date: NA Telecom: NA Address: NA
--- OUTSIDE RECORDS SUMMARY | 2025-04-08 05:45 | XMS_ITS ---
Author Organization Shaka Chairez III, MD Address [address] [place] [address] Care Team Providers Care Social Media Analyst Name Role Phone Dr. Shaka Chairez III Primary Care Provider [phone] Allergies Allergen (clinical drug ingredient) Drug/Non Drug Allergy documented on EMR Reaction Allergy Type Onset Date Status No Known Drug Allergy Unknown Drug Allergy Active No Known Food Allergy Unknown Drug Allergy Active REASON FOR VISIT Acid reflux x 1 week Medications Medication SIG (Take, Route, Fr equency, Duration) Notes Start Date End Date Status Omeprazole 20 MG 1 capsule Orally Onc e a day for 30 days 04/08/2025 Active Womens One Daily 18 one a day Orally Active Social History Tobacco Use: Social History Observation Description Date Details (start date - stop date) Never Smoker NA - NA Sex Assigned At : Social History Observation Description Sex Assigned At Female Tobacco Control (Standard) Question Answer Notes Tobacco use: Nonsmoker Additional Findings: Tobacco non-user Aggressive nonsmoker Vital Signs Temperature 96.6 degrees Fahrenheit 04/08/20 25 Blood pressure systolic 148 mm Hg 04/08/20 25 Blood pressure diastolic 83 mm Hg 025 Heart Rate 70 /min 04/08/2025 Height 64 in 04/08/2025 Weight 194 lbs 04/08/2025 BMI 33.3 kg/m2 04/08/2025 Encounters Encounter Location Date Provider Diagnosis Shaka Chairez III, MD [address] [place] [address] [address] [place] [address] 04/08/2025 Shaka Chairez Chest pain R07.9 Assessments Encounter Date Diagnosis (ICD Code) Assessment Notes Treatment Notes Treatment Clinical Notes 04/08/2025 Chest pain (ICD-10 - R07.9) Plan Of Treatment Medication Medication Name Sig Start Date Stop Date Notes Omeprazole 20 MG 1 capsule Orally Onc e a day for 30 days 04/08/2025 Womens One Daily 18 one a day Orally Pending Test Test Name Order Date ECG 12 lead EKG 04/08/2025 Exercise Stress Test 04/08/2025 Next Appt Details Follow Up: 4 Weeks, Reason: OV Provider Name:Shaka Chairez , 05/18/2025 10:00:00 AM, [address] [place] [address] [address], [place], [phone], Provider Name:Shaka Chairez , 01/01/2026 02:00:00 PM, [address] [place] [address] [address], [place], [phone], Progress Notes * Brittanie GAVIRIA NDOB: [birth year] (50 yo F)Acc No.[id number]:04/08/2025 Progress Notes Patient: Brittanie YUEN Provider: Elvis Chairez MD :1975 A ge:50 Y S ex:Female Date:04/08/2025 Address:[address] [place] [id number] Subjective: * Chief Complaints: * 1 . Acid reflux x 1 week. * HPI: C OVID-19 Screening: bilat knee pain, t ilghtness 5 min not at night? choking angina vs heartburn. Questions H ave you had any new [...] enies. * Medical History: M icrocytic anemia. 2012, Slightly overweight, Left ankle sprain follow up, 2024 injury left foot with residual pain on prolonged standing. * Family History: F ather: alive 66 [...] dditional Findings: Tobacco non-user A ggressive nonsmoker S he has been to [place] for several years. She was born in [facility]. She has 2 healthy children, both daughters. 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 She has no exposures. She has never had a transfusion. She has not a Jehovah's witness. * Medications: T aking Womens One Daily 18 mg one a day Orally , Medication List reviewed and reconciled with the patient * Allergies: N o Known Drug Allergy, No Known Food Allergy. Objective: * Vitals: H t: 64, Wt: 194, BMI:33.3, BP: 148/83, HR: 70, Temp: 96.6, Wt-k. * Examination: G eneral Examination: GENERAL APPEARANCE: p andrew, well nourished, well developed, in no acute [...] a lert, oriented. Assessment: * Assessment: 1. C hest pain - R07.9 Plan: * Treatment: 2. O thers Continue Womens One Daily mg, 18, one a day, Orally; S tart Omeprazole Capsule Delayed Release, 20 MG, 1 capsule, Orally, Once a day, 30 days, 30 Capsule, Refills 5. * Preventive Medicine: Counseling: C are goal [...] Other reason not done * Follow Up: 4 Weeks (Reason: OV) * Images: * The named appointment provid er may or may not be the originator of this progress note, and it is not deemed complete until electronically signed by the appointment provider. Sign off status: Pending * Provider: Elvis Chairez MD Date: 06/09/2024 Generated for Cameroni kajal/Lily/eTransmitting on: 06/09/2024 11:41 AM EST History and [...]
--- OUTSIDE RECORDS SUMMARY | 2025-04-08 11:41 | XMS_ITS | Patient Health Record ---
Author Organization Shaka Chairez III, MD Address [address] [place] [address] Care Team Providers Care Jig Grinder Name Role Phone Dr. Shaka Chairez III Primary Care Provider [phone] Allergies Allergen (clinical drug ingredient) Drug/Non Drug Allergy documented on EMR Reaction Allergy Type Onset Date Status No Known Drug Allergy Unknown Drug Allergy Active No Known Food Allergy Unknown Drug Allergy Active Results Component Value Reference Range Notes MAMMOGRAM DIGITAL BILATERAL SCREEN Reviewed date:01/06/2025 01:35:57 PM Interpretation:undefined Performing Lab: Notes/Report: undefined Urine Culture Reviewed date:11/07/2024 01:03:44 PM Interpretation: Performing Lab:[facility], [address] [place] [id number] Notes/Report: Urine Culture Report Result Urine Culture 10,000 to 50,000 cfu/ml Urine Culture Mixed bacterial paige a characteristic of Urine Culture urogenital contamination. Urinalysis Reviewed date:11/07/2024 01:03:44 PM Interpretation: Performing Lab:[address] [address] Notes/Report: Color Urine Yellow Appearance Urine Clear PH 5.5 5.0-9.0 Glucose Urine UA Negative Negative mg/dL Urine Blood Negative Negative Specific [place] - Urine 1.020 1.005-1.025 Urine Protein Negative Neg-Trace mg/dL Urine Ketones Negative Negative mg/dL Nitrite Urine Negative Negative Leukocyte Esterase Urine Negative Negative Reason For Referral Reason Consult and Treat Left Foot Pain Diagnosis 1 Left foot pain (M79. 672) Referral Organization Shaka Chairez III, MD Referring Provider First Name Shaka Referring Provider Last Name Contreras Referring Provider Speciality Internal M edicine Referred Provider [facility] Gabriel quesada [place] Referred Provider Specialty Podiatry General Notes D, Jennifer 01/02/2025 01:42:55 PM > referral and progress note faxed., D, Jennifer 02/24/2025 10:31:56 AM >D, Jennifer 02/24/2025 10:28:46 AM > [facility] is requiring all patients to call and schedule their appointments no pcp referral needed. Patient was contacted and left a message regarding referral. Referral Priority Routine Medications Medication SIG (Take, Route, Fr equency, Duration) Notes Start Date End Date Status Omeprazole 20 MG 1 capsule Orally Onc e a day for 30 days 04/08/2025 Active Womens One Daily 18 one a day Orally Active Immunizations Vaccine Route Administration Date Status Comme nts Hepatitis B (20 and more) Unknown 04/05/2022 Administer ed Hepatitis B (20 and more) Unknown 03/06/2022 Administer ed Hepatitis B (20 and more) Unknown 09/10/2022 Administer ed Tdap Unknown 05/29/2022 Administered COVID PFIZER Unknown 04/26/2020 Administered COVID PFIZER Unknown 03/06/2021 Administered COVID PFIZER Unknown 05/17/2020 Administered Flu-ccIIv3, p-free Unknown 01/28/2024 Administered Social History Tobacco Use: Social History Observation [...] Problem Status W/U Status Risk Notes Problem 056576384 Other obesity due to excess calories (E66.09) Active confirmed She has gained weight and her body mass index is now 30. We discussed diet and nutrition at length. We made a strategy to lose weight at a rate of 1 pound per week. Problem [id number] Sprain of unspecified ligament of left ankle, initial encounter (S93.402A) Active confirmed She is recovering well. No fracture was noted on x-rays. He will refrain for several weeks from his vigorous physical activity and then resume normal life. Problem [id number] Microcytic anemia (D50.9) Active confirmed Comprehensive blood work with a CBC has been ordered to reassess this problem. Problem 05025101 Leukopenia, unspecified type (D72.819) Active confirmed She has had no infections until now. Comprehensive blood work has been ordered prior to her next visit. Problem History of measles, mumps, rubella (MMR) vaccination unknown (Z78.9) Active confirmed Problem [id number] Moderate obesity (E66.9) Active confirmed Since April 2023 she has gained 43 pounds. We discussed diet and nutrition today. We made a plan to lose weight at a rate of one half of a pound per week through a diet restricted in fat calories and sodium combined with regular physical activities. Vital Signs Heart Rate 70 /min 04/08/2025 Temperature 96.6 degrees Fahrenheit 04/08/2025 Blood pressure diastolic 83 mm Hg 04/08/2025 Height 64 in 04/08/2025 Blood pressure systolic 148 mm Hg 04/08/2025 Weight 194 lbs 04/08/2025 BMI 33.3 kg/m2 04/08/2025 Encounters Encounter Location Date Provider Diagnosis Shaka Chairez III, MD [address] [place] [address] [place] [address] 12/31/2024 Shaka Chairez Microcytic anemia D50.9 ; Moderate obesity E66.9 ; Leukopenia, unspecified type D72.819 and Sprain of unspecified ligament of left ankle, initial encounter S93.402A Shaka Chairez III, MD [address] [place] [address] [place] [address] 10/27/2024 Shaka Chairez UTI symptoms R39.9 ; Sprain of unspecified ligament of left ankle, initial encounter S93.402A ; Leukopenia, unspecified type D72.819 ; Microcytic anemia D50.9 and Other obesity due to excess calories E66.09 Shaka Chairez III, MD [address] [place] [address] [place] [address] 04/08/2025 Shaka Chairez Chest pain R07.9 Shaka Chairez III, MD [address] [place] [address] [address] [place] [address] 06/18/2024 Shaka Chairez Assessments Encounter Date Diagnosis (ICD Code) Assessment [...] and sodium combined with regular physical activities. 10/27/2024 Sprain of unspecified ligament of left ankle, initial encounter (ICD-10 - S93.402A) She is recovering well. No fracture was noted on x-rays. He will refrain for several weeks from his vigorous physical activity and then resume normal life. 10/27/2024 UTI symptoms (ICD-10 - R39.9) A urine culture was ordered and is currently pending. 04/08/2025 Chest pain (ICD-10 - R07.9) 12/31/2024 Leukopenia, unspecified type (ICD-10 - D72.819) She has had no infections until now. Comprehensive blood work has been ordered prior to her next visit. 10/27/2024 Leukopenia, unspecified type (ICD-10 - D72.819) [...] activity and then resume normal life. 10/27/2024 Microcytic anemia (ICD-10 - D50.9) She [...] 1 pound per week. Plan Of Treatment Pending Test Test Name Order Date PROFILE, FASTING (COMPREHENSIVE METABOLI C) 01/31/2021 PROFILE, FASTING (COMPREHENSIVE METABOLI C) 01/31/2022 PROFILE, FASTING (COMPREHENSIVE METABOLI C) 01/17/2021 PROFILE, FASTING (COMPREHENSIVE METABOLI C) 12/31/2024 PROFILE, FASTING (COMPREHENSIVE METABOLI C) 07/06/2023 PROFILE, FASTING (COMPREHENSIVE METABOLI C) 05/24/2021 PROFILE, FASTING (COMPREHENSIVE METABOLI C) 08/09/2022 PROFILE, RANDOM (COMPREHENSIVE METABOLIC ) 08/15/2022 LIPID PANEL 01/31/2022 LIPID PANEL 01/17/2021 LIPID PANEL 08/09/2022 FREE T4 (FT4) 01/17/2021 TSH (THYROID STIMULATING HORMONE) 2020 FERRITIN 08/09/2022 FERRITIN 07/23/2017 CBC w DIFF 01/17/2021 CBC w DIFF 07/22/2021 CBC w DIFF 08/09/2022 CBC w DIFF 01/31/2021 CBC w DIFF 07/23/2017 CBC w DIFF 01/31/2022 CBC w DIFF 08/15/2022 CBC w DIFF 12/31/2024 CBC w DIFF 05/24/2021 SED RATE (ESR) 01/17/2021 SED RATE (ESR) 07/22/2021 SED RATE (ESR) 08/15/2022 RETICULOCYTE COUNT,CORRECTED 07/23/2017 SICKLE CELL SCREEN 07/23/2017 RUBEOLA IGG (MEASLES) 10/06/2022 MUMPS AB IGG 10/06/2022 URINALYSIS (UA) 10/27/2024 HAPTOGLOBIN 07/23/2017 HGB ELECTROPHORESIS 08/13/2017 CBC WITH AUTO DIFF 07/06/2023 RUBELLA IGG 10/06/2022 Uric Acid 01/17/2021 Ferritin 07/22/2021 Ferritin 01/17/2021 Lipid Panel 05/24/2021 Lipid Panel 01/31/2021 Lipid Panel 07/22/2021 Lipid Panel 12/31/2024 Lipid Panel 07/06/2023 Vitamin D 25-OH Total 01/17/2021 Protein 24 Hour Urine 08/15/2022 Hepatitis B Surface Antibody 11/03/2022 Rubella IgG Antibody 10/16/2022 Varicella IgG Antibody 10/06/2022 T Spot TB 10/06/2022 ECG 12 lead EKG 04/08/2025 MM screening mammo implant BI 07/06/2023 Exercise Stress Test 04/08/2025 Next Appt Details Provider Name:Shaka Chairez , 05/18/2025 10:00:00 AM, [address] [place] [address] [address], [place], [id number], Provider Name:Shaka Chairez , 01/01/2026 02:00:00 PM, [address] [place] [address] [address], [place], [phone], Insurance Providers Payer Name Payer Address Payer Phone Subscriber Number Group Number Insured Name Patient Relationship to Insured Coverage Start Date Coverage End Date [employer] [place] [address] [address] [place] [address] [id number] Brittanie English Self - patient is the insured Medical (General) History Medical History History ICD Code microcytic anemia. 2012 slightly overweight left ankle sprain follow up 2024 injury left foot with residual pain on prolonged standing Surgical History Surgery Date(Month/Year)
--- NOTE | 2025-04-08 11:42 | ECG_ITS ---
Test Reason : cp Blood Pressure : */* mmHG Vent. Rate : 64 BPM Atrial Rate : 64 BPM P-R Int : 140 ms QRS Dur : 72 ms QT Int : 390 ms P-R-T Axes : 61 50 28 degrees QTcB Int : 402 ms Normal sinus rhythm Normal ECG No previous ECGs available Referred By: Shaka Chairez Electronically Signed By: DIANA KEVIN MD
== END ==
LOC: HO.CARD 11:36
PROVIDERS: PCP Internal Medicine Medical Oncology; Visit Provider Internal Medicine Medical Oncology
DX: R07.9 Chest pain, unspecified (principal)
CPT/HCPCS: 93005

== ENCOUNTER → 2025-04-08 11:42 | Outpatient (BNV) | payer BC, SELFPAY | PROVIDERS: PCP Internal Medicine Medical Oncology; Visit Provider Internal Medicine Cardiovascular Disease | DX: R07.9 Chest pain, unspecified (principal) | CPT/HCPCS: 93010 ==